=== PATIENT | male | born 1985 | race Caucasian/White ===

== ENCOUNTER 2018-02-09 09:49 | Day surgery (SDC) | payer OTHER, SELFPAY ==
--- NOTE | 2018-02-09 07:30 | RAD_ITS ---
STUDY: X-RAY - RIGHT FOOT CLINICAL: Male, 32 years old. ORIF of the fifth metatarsal. TECHNIQUE: 2 coned-down view(s) of the foot were obtained intraoperatively. COMPARISON: None. FINDINGS: Intraoperative fluoroscopic services provided for screw fixation of the fracture at the base of the fifth metatarsal. RAD/Foot 2 Views IMPRESSION: Intraoperative fluoroscopy provided for fixation of the fifth metatarsal fracture. Electronically Signed: Silas Patterson MD at 15:45 EDT Tel [phone], Service support ,
[2018-02-09 10:14] VITALS: BP 135/79; PULSE 61; RESP 16; TEMP 36.3; O2SAT 98; BMI 29.7
[2018-02-09] MEDS: Cefazolin 2 GM in 0.9% Normal Saline 100 ML IV (12:34)
--- NOTE | 2018-02-09 12:35 | PCM.DC.ORTHO ---
Discharge Diet: No Restrictions Discharge Activity: May Not Drive May shower in (days): 1 Ice area for (Minutes): 20 - Ice area for 20 minutes each hour while awake Weight Bearing Status: No weight bearing Keep extremity elevated above heart level: Operative Extremity Call your doctor if your incision/area has: Continuous Slow Oozing, Sudden Increased Bleeding, Increased Pain/ Swelling, Increased Redness, Foul Smelling Discharge Call your doctor if you observe: Fever of 101 or Higher, Coldness, Increased Pain, Numbness or Tingling, Change in Color Cleanse incision/area with: Keep Dressing Clean & Dry Allergies/Adverse Reactions: Allergies No Known Allergies Allergy (Verified 04/03/16 16:58) Medications to take at Discharge Dexamethasone 0.75 mg PO DAILY 04/03/16 Hydrocodone/Acetaminophen [Hydrocodon-Acetaminoph 7.5-325] 1 each PO Q4H PRN PRN 04/03/16 Ondansetron [Zofran Odt] 4 mg PO Q6H PRN PRN #20 tablet 04/03/16 Test Results: Test results from this visit will be discussed in further detail at your follow-up appointment, if applicable. Please Follow Up With: Chuck Grace, When: as scheduled
--- NOTE | 2018-02-09 12:57 | DCINST_ITS ---
Discharge Diet: No Restrictions Discharge Activity: May Not Drive May shower in (days): 1 Ice area for (Minutes): 20 - Ice area for 20 minutes each hour while awake Weight Bearing Status: No weight bearing Keep extremity elevated above heart level: Operative Extremity Call your doctor if your incision/area has: Continuous Slow Oozing, Sudden Increased Bleeding, Increased Pain/ Swelling, Increased Redness, Foul Smelling Discharge Call your doctor if you observe: Fever of 101 or Higher, Coldness, Increased Pain, Numbness or Tingling, Change in Color Cleanse incision/area with: Keep Dressing Clean & Dry Allergies/Adverse Reactions: Allergies No Known Allergies Allergy (Verified 04/03/16 16:58) Medications to take at Discharge Dexamethasone 0.75 mg PO DAILY 04/03/16 Hydrocodone/Acetaminophen [Hydrocodon-Acetaminoph 7.5-325] 1 each PO Q4H PRN PRN 04/03/16 Ondansetron [Zofran Odt] 4 mg PO Q6H PRN PRN #20 tablet 04/03/16 Test Results: Test results from this visit will be discussed in further detail at your follow- up appointment, if applicable. Please Follow Up With: Chuck Grace, When: as scheduled
--- NOTE | 2018-02-09 13:21 | OP.PCM_ITS ---
Report of Operation Date of Procedure: 02/09/18 Pre-Operative Diagnosis: Fracture base of fifth metatarsal right Post-Operative Diagnosis: Same Surgery/Procedure Performed:: Open reduction with internal fixation of right fifth metatarsal base Description of Surgical Findings:: Fracture mainframe systems administrator: James Cuadra Type of Anesthesia:: General Anesthesiologist: Wai Serrano Estimated Blood Loss (mL): 5 Fluids Replaced: See anesthesia report Description of Procedure: Implants: Arthrex 4.5 millimeter screw 45 mm in length Surgical indications: Cale is a 32-year-old male that was playing basketball with a 12-year-old. He turned his ankle sustaining a displaced fifth metatarsal base fracture. Patient has elected to have this surgically secured for hopefully more controlled and improved healing Procedure description: Right was greeted in the preoperative area. His right foot was marked with surgical marker. Preoperative antibiotics were administered he was then taken or [address] in stable condition. After adequate anesthesia was obtained a well-padded tourniquet was placed on patient's thigh. The tourniquet was not required during the procedure. Surgical timeout was performed and surgery was commenced. Fluoroscopic imaging was utilized in a biplanar fashion. The fracture site was identified and a incision was then made just proximal to the base of the fifth metatarsal and propagating past the fracture site. Once this was obtained hemostasis was controlled with Bovie cautery. A guidepin was then placed at the tip of the fifth metatarsal intramedullary really across the fracture site. A drill was used followed by a 4.5 mm tap. Appropriate length screw was then chosen and this was inserted into the base of the fifth metatarsal intramedullary really across the fracture site compressing the fracture. Biplanar fluoroscopic imaging was used to confirm appropriate placement as well as reduction of the fracture. Once this was complete the wound was irrigated and closed with 4-0 nylon. A well-padded nonadherent dressing was applied secured with an AO type splint and Stephen wrap. Patient was taken to the recovery room in stable condition. Postoperatively: Patient should maintain nonweightbearing status for approximately 6 weeks while this feels. Remove the splint in 2 weeks and placed in a removable cam boot at that time however he should treat this largely as a cast and only removed for hygiene and gentle range of motion exercises - Admit VTE Documentation VTE Present on Admission: Yes VTE Mechan Device Prophylaxis: SCD's, Thigh High SHANNON Normae VTE Pharm Prophylaxis ordered?: No Reason prophylaxis not ordered:: Procedure Not Indicated
[2018-02-09 13:29] VITALS: BP 135/79; BP 148/102; PULSE 61; RESP 14; TEMP 36.5; O2SAT 95
[2018-02-09 13:30] VITALS: BP 135/79; BP 142/100; PULSE 62; RESP 16; O2SAT 94
[2018-02-09 13:45] VITALS: BP 135/79; BP 137/90; PULSE 58; RESP 18; O2SAT 93
[2018-02-09 14:00] VITALS: BP 135/74; BP 135/79; PULSE 60; RESP 18; TEMP 36.4; O2SAT 98
[2018-02-09] MEDS: HYDROcodone Bitartrate/Apap 5/325 Tablet PO (14:37)
[2018-02-09 14:39] VITALS: BP 121/73; BP 135/79; PULSE 57; RESP 18; TEMP 36.4; O2SAT 98
== END 2018-02-09 14:55 | disposition home or self-care (01) ==
LOC: SDC 09:49 → AC 09:51
PROVIDERS: Family Provider Nurse Practitioner Family; PCP Nurse Practitioner Family; Visit Provider Orthopaedic Surgery
PROC: (CPT 28485; principal; 2018-02-09 07:15)
DX: S92.351A Displaced fracture of fifth metatarsal bone, right foot, initial encounter for closed fracture (principal); X50.1XXA Overexertion from prolonged static or awkward postures, initial encounter; Y93.67 Activity, basketball; Y92.9 Unspecified place or not applicable
CPT/HCPCS: 28485; 73620; 76000; C1713; J7120; J2405